=== PATIENT | female | born 1950 | race Caucasian/White ===

== ENCOUNTER 2019-11-27 14:14 | Outpatient (CLI) | payer MEDICARE, OTHER, SELFPAY ==
--- NOTE | 2019-11-27 14:22 | MM_ITS ---
WS: [id number] BILATERAL DIGITAL SCREENING MAMMOGRAM WITH CAD CLINICAL INFORMATION: SCREENING HISTORY: Screening mammogram. No current complaints. COMPARISON: May 22, 2018 TECHNIQUE: Bilateral CC and MLO views. FINDINGS: Fatty-replaced breasts bilaterally. No suspicious focal mass, asymmetry, calcifications, or sap portal architect ural distortion. No evidence of malignancy. MM/[id number] IMPRESSION: BI-RADS: 1-Negative FOLLOW UP: 1 Year Follow-up Recommend return to annual screening mammography.
== END 2019-11-27 14:15 | disposition home or self-care (01) ==
LOC: RADSHAW 14:19
PROVIDERS: Family Provider Family Medicine; PCP Family Medicine; Visit Provider Family Medicine
DX: Z12.31 Encounter for screening mammogram for malignant neoplasm of breast (principal)
CPT/HCPCS: 77067

== ENCOUNTER → 2020-06-15 11:54 | Outpatient (BNVA) | payer MEDICARE, SELFPAY | PROVIDERS: Family Provider Family Medicine; PCP Family Medicine; Visit Provider Family Medicine | DX: I10 Essential (primary) hypertension (principal); E78.5 Hyperlipidemia, unspecified; E03.9 Hypothyroidism, unspecified; Z68.31 Body mass index [BMI] 31.0-31.9, adult; F17.211 Nicotine dependence, cigarettes, in remission | CPT/HCPCS: 80053; 80061; 84443; 85025 ==

== ENCOUNTER 2021-03-17 10:42 | Outpatient (CLI) | payer MEDICARE, SELFPAY ==
--- NOTE | 2021-03-17 10:49 | MM_ITS ---
WS: [id number] Bilateral screening digital mammogram, 03/17/2021 Clinical Data: SCREENING Comparison: 11/27/2019, 05/22/2018, 12/25/2016, 02/23/2015, 08/03/2011, 12/03/2008. Findings: The breast parenchymal pattern shows fat replacement. No spiculated masses or clustered calcification s are seen. There are no secondary signs of carcinoma. MM/[id number] Impression: 1. Negative bilateral mammogram unchanged. 2. Recommend annual screening mammograms. BIRADS: 1-Negative FOLLOW UP: 1 Year Follow-up The CAD seam checker was used.
== END 2021-03-17 10:43 | disposition home or self-care (01) ==
PROVIDERS: Family Provider Family Medicine; PCP Family Medicine; Visit Provider Family Medicine
DX: Z12.31 Encounter for screening mammogram for malignant neoplasm of breast (principal)
CPT/HCPCS: 77067

== ENCOUNTER → 2021-05-16 16:22 | Outpatient (BNVA) | payer MEDICARE, SELFPAY | PROVIDERS: Family Provider Family Medicine; PCP Family Medicine; Visit Provider Nurse Practitioner Family | DX: Z20.822 Contact with and (suspected) exposure to COVID-19 (principal); J06.9 Acute upper respiratory infection, unspecified | CPT/HCPCS: 87635 ==

== ENCOUNTER → 2021-07-11 14:29 | Outpatient (BNVA) | payer MEDICARE, OTHER, SELFPAY | PROVIDERS: Family Provider Family Medicine; PCP Family Medicine; Visit Provider Family Medicine | DX: Z00.00 Encounter for general adult medical examination without abnormal findings (principal); E78.5 Hyperlipidemia, unspecified; I10 Essential (primary) hypertension; E03.9 Hypothyroidism, unspecified; E66.09 Other obesity due to excess calories; Z68.31 Body mass index [BMI] 31.0-31.9, adult | CPT/HCPCS: 80053; 80061; 84443; 85025 ==

== ENCOUNTER 2022-01-21 15:52 | Emergency (ER) | payer MEDICARE, SELFPAY ==
[2022-01-21] VITALS (7 sets, daily range): BP systolic 103–155; BP diastolic 47–96; PULSE 45–142; RESP 14–25; TEMP 36.8; O2SAT 94–100; BMI 30.9
--- NOTE | 2022-01-21 15:57 | XRR_ITS ---
PROCEDURE INFORMATION: Exam: XR Chest Exam date and time: 01/21/2022 4:35 PM Age: 71 years old Clinical indication: Pain; Chest pressure; Additional info: Cp TECHNIQUE: Imaging protocol: XR of the chest. Views: 1 view. COMPARISON: CR Chest 1 [place] [id number] 08/09/2017 12:05 AM FINDINGS: Lungs: Emphysematous changes suspected. Pleural spaces: Unremarkable. No pleural effusion. No pneumothorax. Heart/Mediastinum: Unremarkable. No cardiomegaly. Bones/joints: Unremarkable. XR/XR chest 1V portable [id number] IMPRESSION: 1. Negative for infiltrate. 2. Emphysematous changes suspected.
--- NOTE | 2022-01-21 15:58 | ECG_ITS ---
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 Measurements Intervals [place] Rate: 138 P: TN: QRS: 25 QRSD: 85 T: 248 QT: 263 QTc: 400 Interpretive Statements ATRIAL FIBRILLATION WITH RAPID VENTRICULAR RESPONSE NONSPECIFIC ST & T-WAVE ABNORMALITY Compared to ECG 08/09/2017 02:47:53 Sinus bradycardia no longer present Possible ischemia no longer present T-wave abnormality still present Electronically Signed On 01-22-2022 9:01:01 CDT by Mert Neville M.D. [id number]
--- NOTE | 2022-01-21 16:16 | W.ED.GENADLT ---
HPI - General Adult General: Chief complaint: Shortness of Breath/Dyspnea Stated complaint: Hx of heart issues, Chest Pain, SOB Time Seen by Provider: 01/21/22 16:08 History of Present Illness: Patient is a 71-year-old female with history of paroxysmal atrial fibrillation, CAD status post stent x1 hypertension, hypothyroidism, hyperlipidemia who presents the emergency room with acute palpitation which started at 2:30 PM. Patient tells me that she has intermittent episodes of atrial fibrillation palpitations similar to today. However usually, it goes away after 30 minutes. However patient noticed that she has had persistent palpitation and elevated blood pressure decided come to the emergency room for evaluation. Patient tells me that she takes 25 mg of metoprolol twice daily for her heart. Patient not take any medicine today. Patient denies taking any more of her Synthroid medicine for her hypothyroidism. Patient denies recent stress or excessive caffeine use. Patient denies any active chest pain. Patient had mild shortness of breath after 45 minutes of this palpitation. Patient denies any lightheadedness, focal weakness, abdominal complaints of nausea/vomiting, diaphoresis, diarrhea, or melena/hematochezia. Onset: 1 hr and half agao Duration:ongoing Location:home Severity:moderate Associated symptoms: Reports dyspnea and palpitations; Deny chest pain, nausea, rash or vomiting Review of Systems Const: Denies: fever(s) or chills Eyes: Denies: change in vision ENMT: Denies: mouth pain Card: Reports: palpitations; Denies: chest pain Resp: Reports: dyspnea; Denies: non-productive cough GI: Denies: abdominal pain, nausea, vomiting or diarrhea : Denies: dysuria Musc: Denies: extremity pain Skin/Breast: Denies: rash or new lesions Neuro: Denies: weakness in extremities Psych: Reports: other (Normal mood) Morris/Lymph: Denies: easy bruising PFSH ED PFSH: Medical History Dyslipidemia HTN (hypertension) Hypothyroidism Obesity Family History Father Cancer LUNG Mother Cancer Social History Smoking and tobacco status: former smoker Alcohol intake: current Alcohol intake frequency: holidays/special occasions only Lives independently: Yes Marital status: / Current occupational status: retired Current gender identity: Female Physical Exam Const: COMMON NORMALS: alert HENMT: COMMON NORMALS: atraumatic HEAD & SCALP: atraumatic MOUTH: moist mucous membranes not abnormal Eye: COMMON NORMALS: EOMs intact bilaterally and conjunctivae normal CONJUNCTIVA: Yes conjunctivae normal Neck/C-Spine: COMMON NORMALS: full ROM and supple Resp: COMMON NORMALS: normal respiratory effort and clear to auscultation bilaterally AUSCULTATION: clear to auscultation bilaterally Cardio: RATE: tachycardic OTHER: Irregular irregular tachycardia GI: COMMON NORMALS: Soft to palpation and non-tender PALPATION: Yes Soft to palpation Extremity: COMMON NORMALS: full ROM Neuro: SENSORIUM/ORIENTATION: Yes alert MOTOR EXAM: No Abnormal motor strength present and Other motor observations present (no focal motor deficits) Psych: COMMON NORMALS: speech normal SPEECH: Yes normal speech MOOD & AFFECT: Yes euthymic mood Course Vital Signs: Vital signs: Vital Signs Temperature 98.2 F 01/21/22 15:56 Pulse Rate 47 L 01/21/22 18:53 Respiratory Rate 14 01/21/22 18:53 Blood Pressure 116/53 01/21/22 18:53 Pulse Oximetry 95 01/21/22 18:53 [facility] - General Adult Medical Decision Making 71-year-old female with history of CAD, paroxysmal atrial fibrillation, hypothyroidism on Synthroid, hypertension, hyperlipidemia presented to emergency room with new onset of palpitations since 230 today. On arrival, patient is noted to have irregular tachycardia. Patient noted to be in atrial fibrillation with RVR to the 138s. Rest of physical exam within normal limit. Patient recevied IVF, 1mg of Ativan, 10 mg of IV metoprolol, 50 mg of p.o. metoprolol, and 10mg of IV cardizem with significant improvement heart rate. Delta troponin < 5. EKG is nonischemic. D-dimer within normal limit. TSH/T4 within normal. Do not suspect ACS or PE at this time. Free T4 appeared to be mildly elevated. Discussed this finding with patient and instructed her to follow-up with her primary care doctor to adjust her synthroid. K of 3.0, patient received 40 mEq of p.o. potassium. I have given patient follow up with our social work case manager to be seen by our outpatient Cardiology for further evaluation of atrial fibrilation. Patient aware of a call from our social work case manager to schedule for appointment(s) and verbalizes understanding of the importance of following up. Patient has metoprolol at home and have instructed patient to take 50 mg when she has another episode of palpitation in the future. Disposition: Discharge. Patient counseled regarding diagnostic impression, treatment plan. Patient given ED strict return precautions to return for continuation, worsening, or development of new symptoms. Instructed to f/u w/ PCP regarding symptoms today. Patient verbalized understanding. Lab Data : 01/21/22 16:21 01/21/22 16:21 Radiology Impressions Chest X-Ray 01/21/22 15:57 IMPRESSION: 1. Negative for infiltrate. 2. Emphysematous changes suspected. Laboratory Results WBC 8.6 10^3/uL (4.0-10.0) 01/21/22 16: RBC 5.01 10^6/uL (4.1-5.3) 01/21/22 16: Hgb 13.7 g/dL (11.5-15.3) 01/21/22 16:21 Hct 43.5 % (37.0-47.0) 01/21/22 16:21 MCV 86.8 fl (81-99) 01/21/22 16: MCH 27.3 pg (28.0-34.0) L 01/21/22 16:21 MCHC 31.5 g/dL (30.0-36.0) 01/21/22 16:21 RDW 13.2 % (12.1-15.1) 01/21/22 16:21 Plt Count 235 10^3/cmm (130-400) 01/21/22 16:21 MPV 12.8 fL (7.4-10.4) H 01/21/22 16: Neut % (Auto) 47.4 % 01/21/22 16: Lymph % (Auto) 35.9 % 01/21/22 16:21 [place] % (Auto) 10.0 % 01/21/22 16: Eos % (Auto) 5.8 % 01/21/22 16: Baso % (Auto) 0.7 % 01/21/22 16: Neut # (Auto) 4.07 10^3/uL (1.8-7.7) 01/21/22 16:21 Lymph # (Auto) 3.1 10^3/uL (0.8-4.8) 01/21/22 16:21 [place] # (Auto) 0.9 10^3/uL (0.2-0.9) 01/21/22 16:21 Eos # (Auto) 0.5 10^3/uL (0.0-0.8) 01/21/22 16:21 Baso # (Auto) 0.1 10^3/uL (0.0-0.1) 01/21/22 16:21 Nucleated RBC % (auto) 0 % 01/21/22 16:21 Nucleated RBCs # 0.0 /100WBC 01/21/22 16:21 PT 13.00 SECONDS (12.1-14.9) 01/21/22 16:21 INR 0.95 (0.8-1.2) 01/21/22 16:21 D-Dimer 0.33 ug/mIFEU (0-0.59) 01/21/22 16:21 Sodium 138 mmol/L (136-145) 01/21/22 16:21 Potassium 3.0 mmol/L (3.5-5.1) L 01/21/22 16:21 Chloride 99 mmol/L (98-107) 01/21/22 16:21 Carbon Dioxide 20 mmol/L (22-29) L 01/21/22 16:21 Anion Gap 22.0 (5-19) H 01/21/22 16:21 BUN 18 mg/dL (8-23) 01/21/22 16:21 Creatinine 1.0 mg/dL (0.5-0.9) H 01/21/22 16:21 GFR Calculation 54.8 mL/min (90-130) L 01/21/22 16:21 Glucose 135 mg/dL (65-115) H 01/21/22 16:21 Calculated Osmolality 290 mOsm/kg (285-295) 01/21/22 16:21 Calcium 10.3 mg/dL (8.5-10.5) 01/21/22 16:21 Total Bilirubin 0.7 mg/dL (0.15-1.2) 01/21/22 16:21 AST 22 U/L (0-32) 01/21/22 16:21 ALT 19 U/L (0-33) 01/21/22 16:21 Alkaline Phosphatase 91 IU/L (35-105) 01/21/22 16:21 Troponin T Baseline 8 ng/L (0-10) 01/21/22 16:21 Troponin T 120 Minute 12.36 ng/L (0-10) H 01/21/22 18:30 Delta Troponin T 4.36 ABS# (0-10) 01/21/22 18:30 NT-Pro-B Natriuret Pep 155 pg/mL (0-125) H 01/21/22 16:21 Total Protein 7.4 g/dL (6.6-8.7) 01/21/22 16:21 Albumin 4.9 g/dL (3.5-5.2) 01/21/22 16:21 Globulin 2.5 g/dL (1.3-4.6) 01/21/22 16:21 TSH 1.78 uIU/mL (0.27-4.20) 01/21/22 16:21 Free T4 1.87 ng/dL (0.82-1.77) H 01/21/22 16:21 Imaging Data Other Imaging: Radiologist's impression: [address] [address] XRay Report Signed Patient: Miryam Medina Unit #: [id number] : 1950 Age/Sex: 71 / F ADM Date: 01/21/22 Loc: ER Room/Bed: Attending Dr: Ordering Provider/Ordering MD: Mary Guevara MD Date of Service: 01/21/22 Procedure(s): XR chest 1V portable [id number] Accession Number(s): [id number] Report Number: [id number] PROCEDURE INFORMATION: Exam: XR Chest Exam date and time: 01/21/2022 4:35 PM Age: 71 years old Clinical indication: Pain; Chest pressure; Additional info: Cp TECHNIQUE: Imaging protocol: XR of the chest. Views: 1 view. COMPARISON: CR Chest 1 [place] [id number] 08/09/2017 12:05 AM FINDINGS: Lungs: Emphysematous changes suspected. Pleural spaces: Unremarkable. No pleural effusion. No pneumothorax. Heart/Mediastinum: Unremarkable. No cardiomegaly. Bones/joints: Unremarkable. XR/XR chest 1V portable [id number] IMPRESSION: 1. Negative for infiltrate. 2. Emphysematous changes suspected. ? Dictated By: Noe Solo MD Signed By: Noe Solo MD Signed Date/Time: 01/21/22 1732 DD/ 1635 Discharge Plan Discharge Patient Disposition: Home Clinical Impression: Atrial fibrillation, Dyspnea, Palpitations, Hypokalemia Condition: Stable Prescriptions: No Action Move Free Joint Health 750 mg-100 mg- 1.65 mg-108 mg tablet PO DAILY 0RF aspirin [Adult Low Dose Aspirin] 81 mg tablet,delayed release (DR/EC) 81 mg PO QDAY 0RF ascorbic acid (vitamin C) 250 mg tablet 250 mg PO DAILY 0RF cholecalciferol (vitamin D3) 25 mcg (1,000 unit) capsule 25 mcg PO DAILY 0RF potassium chloride 20 mEq tablet,ER particles/crystals 20 meq PO QDAY Qty: 90 3RF nitroglycerin [Nitrostat] 0.4 mg tablet, sublingual 0.4 mg SUBLINGUAL Q5M PRN (Reason: chest pain) Qty: 30 6RF diphenhydramine HCl [Sleep-Tabs] 25 mg tablet 25 mg PO ONCE PRN0RF nitrofurantoin macrocrystal [Macrodantin] 100 mg capsule 100 mg PO BID Qty: 30 1RF Rx Instructions: must administer with a meal/food rosuvastatin 10 mg tablet See Rx Instructions .ROUTE .COMPLEX Qty: 90 3RF Dose Instruction: TAKE 1 TABLET BY MOUTH EVERY DAY Rx Instructions: TAKE 1 TABLET BY MOUTH EVERY DAY hydrochlorothiazide 25 mg tablet 25 mg PO QAM Qty: 90 2RF epinephrine 0.3 mg/0.3 mL auto-injector 0.3 mg IM ONCE PRN (Reason: hypersensitivity reaction) Qty: 1 0RF metoprolol tartrate 25 mg tablet 25 mg PO BID Qty: 180 3RF cholestyramine (with sugar) 4 gram powder in packet 4 g PO DAILY Qty: 20 0RF Rx Instructions: administer w/meal; avoid other meds within 1hr before or 4-6hr after dose levothyroxine [Synthroid] 100 mcg tablet See Rx Instructions .ROUTE .COMPLEX Qty: 90 3RF Dose Instruction: TAKE 1 TABLET BY MOUTH EVERY DAY Rx Instructions: TAKE 1 TABLET BY MOUTH EVERY DAY Discharge Orders: Discharge ED (Routine); Ordered 01/21/22 Ordered By: Ezra Connell Referrals: Joanna Pike MD [Primary Care Provider] - Discharge Diet: Advance as tolerated Discharge Activity: Increase activity as tolerated Patient Instructions: A-fib (Atrial Fibrillation) (ED) Activity Restrictions/Additional Instructions: Come back to the emergency room if you have chest pain, further palpitations, any fever or chills, worsening shortness of breath, worsening exertional lightheadedness, or any new or concerning complaints. Our social work case manager will have you follow-up with Cardiology in the next few days. You would be expected to have a phone call with our social work case manager who will put you on the schedule. You can expect a call from us in the next 2-3 days. If you don't hear from us, call us back in the emergency room at [phone]. Coding Level of Care Code ED Dope Pourer for Jenna Fwd Exam Comprehensive
[2022-01-21] MEDS: metoprolol tartrate 50 mg Tablet PO (16:20)
[2022-01-21] MEDS: LORazepam 2 mg/mL INJ 1 mL 1 MG IVP (16:20)
[2022-01-21] MEDS: sodium chloride 0.9% 500 ML IV (16:20)
--- NOTE | 2022-01-21 16:30 | PC.NURSE ---
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 Patient here today for chest pressure over the last two hours that continues to worsen and is not going away. Patient states this has happened before but resolved quickly and on his own. Patient in bed, alert and oriented, call light within reach, denies any needs, and family at bedside.
[2022-01-21] MEDS: metoprolol tartrate 1 mg/1 mL SDV 5 mL 5 MG IVP ×2 (16:39→17:24)
[2022-01-21 16:40] LABS: Basophils # 0.1 10^3/uL (0.0-0.1); Basophils % 0.7 %; Eosinophils # 0.5 10^3/uL (0.0-0.8); Eosinophils % 5.8 %; Hematocrit 43.5 % (37.0-47.0); Hemoglobin 13.7 g/dL (11.5-15.3); Lymphocytes # 3.1 10^3/uL (0.8-4.8); Lymphocytes % 35.9 %; Mean Corpuscular HGB Conc 31.5 g/dL (30.0-36.0); Mean Corpuscular Hemoglobin 27.3 pg (28.0-34.0); Mean Corpuscular Volume 86.8 fl (81-99); Mean Platelet Volume 12.8 fL (7.4-10.4); Monocytes # 0.9 10^3/uL (0.2-0.9); Neutrophils # 4.07 10^3/uL (1.8-7.7); Neutrophils % 47.4 %; Nucleated Red Blood Cells % 0 %; Platelet Count 235 10^3/cmm (130-400); Red Blood Count 5.01 10^6/uL (4.1-5.3); Red Cell Distribution Width 13.2 % (12.1-15.1); White Blood Count 8.6 10^3/uL (4.0-10.0)
--- NOTE | 2022-01-21 16:40 | PC.NURSE ---
Patient pressure 136/47, notified Dr. Connell, he states to give IV metoprolol slowly and to notify him if it lowers and he will order more fluids. Blood pressure after IVP 128/60, 132 pulse, 96 %, 128/60.
[2022-01-21 16:48] LABS: INR 0.95 (0.8-1.2)
[2022-01-21 16:50] LABS: D Dimer 0.33 ug/mIFEU (0-0.59)
[2022-01-21 16:58] LABS: Troponin(5th) Baseline 8 ng/L (0-10)
[2022-01-21 17:08] LABS: Alanine Aminotransferase 19 U/L (0-33); Albumin Level 4.9 g/dL (3.5-5.2); Alkaline Phosphatase 91 IU/L (35-105); Aspartate Amino Transferase 22 U/L (0-32); Blood Urea Nitrogen 18 mg/dL (8-23); Calcium 10.3 mg/dL (8.5-10.5); Carbon Dioxide 20 mmol/L (22-29); Chloride 99 mmol/L (98-107); Free T4 Free Thyroxine 1.87 ng/dL (0.82-1.77); Globulin 2.5 g/dL (1.3-4.6); Glomerular Filtration Rate 54.8 mL/min (90-130); Glucose 135 mg/dL (65-115); NT Pro B Type Natriuretic Pept 155 pg/mL (0-125); Osmolality Calculated 290 mOsm/kg (285-295); Sodium 138 mmol/L (136-145); Thyroid Stimulating Hormone 1.78 uIU/mL (0.27-4.20); Total Bilirubin 0.7 mg/dL (0.15-1.2); Total Protein 7.4 g/dL (6.6-8.7)
--- NOTE | 2022-01-21 17:48 | PC.NURSE ---
Patient in bed, provider at bedside,family at bedside.
--- NOTE | 2022-01-21 17:48 | PC.NURSE ---
Patient ambulating to bathroom with family.
--- NOTE | 2022-01-21 17:58 | ECG_ITS ---
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 Measurements Intervals [place] Rate: 45 P: 75 IA: 148 QRS: 52 QRSD: 88 T: 41 QT: 460 QTc: 402 Interpretive Statements SINUS BRADYCARDIA NONSPECIFIC ST & T-WAVE ABNORMALITY Compared to ECG 01/21/2022 16:04:04 Atrial fibrillation no longer present T-wave abnormality still present Electronically Signed On 01-22-2022 9:04:38 CDT by Mert Neville M.D. [id number]
[2022-01-21] MEDS: potassium chloride ER 20 mEq Tablet 40 MEQ PO (18:26)
--- NOTE | 2022-01-21 18:26 | PC.ADMIT ---
[address] [address] Admission Note: The patient,Miryam Medina,71 y/o, was given written information regarding hospital policies, unit procedures and contact persons. Patient's smoking status: former smoker. Vital Signs - 8 hr 01/21/22 15:56 01/21/22 16:32 01/21/22 17:39 Temperature 98.2 F Pulse Rate 142 H 130 H 76 Respiratory Rate 24 H 22 H 21 H Blood Pressure 155/96 136/47 103/67 Pulse Oximetry 98 95 95 01/21/22 17:45 Temperature Pulse Rate 76 Respiratory Rate 25 H Blood Pressure 113/79 Pulse Oximetry 94 [id number]
--- NOTE | 2022-01-21 18:54 | PC.NURSE ---
Patient heart rate below 50, Dr. Connell aware, instructed by Dr. Connell to monitor patient and watch her heart rate.
[2022-01-21 19:01] LABS: Troponin 5 2HR 12.36 ng/L (0-10)
[2022-01-21 19:02] LABS: Troponin 5 2HR Delta 4.36 ABS# (0-10)
--- NOTE | 2022-01-21 19:05 | PC.NURSE ---
Patient report given to Mirtha ESTRADA.
--- NOTE | 2022-01-21 21:24 | PC.NURSE ---
per provider direction pt is cleared to be discharged home discharge instructions printed and given to pt. pt pulse at time of dc 50
--- NOTE | 2022-01-23 11:29 | DCPLANNER ---
sales strategy manager had message to speak with patient about getting established with a primary care physician. Patient has a primary care physician, patient sees Dr. Pike. sales strategy manager did call Dr. Valdovinos nurse to let the physician know that his patient was seen in the ER. Patient did have an appointment scheduled for 01.22.[address] Pike and patient did attend the appointment.
== END 2022-01-21 21:29 | disposition home or self-care (01) ==
PROVIDERS: Emergency Medicine; Emergency Provider Emergency Medicine; PCP Family Medicine
DX: I48.91 Unspecified atrial fibrillation (principal); R06.00 Dyspnea, unspecified; E87.6 Hypokalemia; Z79.82 Long term (current) use of aspirin; E78.5 Hyperlipidemia, unspecified; I10 Essential (primary) hypertension; Z87.891 Personal history of nicotine dependence
CPT/HCPCS: 71045; 80053; 83880; 84439; 84443; 84484; 85025; 85378; 85610; 93005; 96361; 96374; 96375; 96376; 99284; J2060; J3490; J7040

== ENCOUNTER 2022-02-07 06:43 | Outpatient (CLI) | payer MEDICARE, SELFPAY ==
--- NOTE | 2022-02-07 07:15 | USCV_ITS ---
Miryam Medina Age: 71 Gender: F : 1950 Exam Date: 02/07/2022 07:05 Ordering Phys: Joanna Pike MD Technologist: Sophia Clark Exam Location: [facility] [place] Indication: Atrial fibrillation BP: 134 / 84 HR: 64 Rhythm: Sinus Technical Quality: Adequate MEASUREMENTS (Male / Female) Normal Values 2D ECHO LV Diastolic Diameter PLAX 4.0 cm 4.2 - 5.9 / 3.9 - 5.3 cm LV Systolic Diameter PLAX 2.7 cm IVS Diastolic Thickness 1.0 cm 0.6 - 1.0 / 0.6 - 0.9 cm IVS Systolic Thickness 1.7 cm LVPW Diastolic Thickness 1.1 cm 0.6 - 1.0 / 0.6 - 0.9 cm LVPW Systolic Thickness 1.5 cm LVOT Diameter 2.0 cm LV Ejection Fraction 2D Teich 61.7 % LV Ejection Fraction MOD 2C 73.5 % LV Ejection Fraction 2C AL 74.5 % LA Diameter 2.0 cm LA Width 3.6 cm LA Height 4.3 cm RA Width 3.4 cm RA Height 4.2 cm Aorta at Sinotubular Diameter 2.2 cm M-MODE Aortic Annulus Diameter 2.8 cm LA Ao Ratio MM 0.6 MV E Point Septal Separation 0.6 cm DOPPLER AV Peak Velocity 187.3 cm/s LVOT Peak Velocity 160.0 cm/s AV Area Cont Eq vti 2.5 cm squared AV Area Cont Eq pk 2.7 cm squared MV Peak Velocity 88.0 cm/s MV Area PHT 2.5 cm squared Mitral E to A Ratio 0.9 MV E' Velocity 85.0 cm/s TR Peak Velocity 265.5 cm/s TR Peak Gradient 28.2 mmHg TR Mean Velocity 218.3 cm/s TR Mean Gradient 19.7 mmHg TR Velocity Time Integral 69.1 cm TV Peak E Velocity 44.0 cm/s Right Atrial Pressure 3.0 mmHg Pulmonary Artery Systolic Pressu 31.2 mmHg PV Peak Velocity 116.0 cm/s RV Acceleration Time 0.1 s RV Ejection Time 0.3 s RV AcT/ET 0.2 FINDINGS Left Ventricle Normal left ventricular size, systolic function and wall thickness, with no regional wall motion abnormalities. Left ventricular ejection fraction is estimated at 70 %. Normal diastolic filling pattern. Right Ventricle Normal right ventricular size and systolic function. Right ventricular systolic pressure 31.2 mmHg. Right Atrium Normal right atrial size. Right atrial pressure estimated at 3 mm Hg. Left Atrium Normal left atrial size. Mitral Valve Structurally normal mitral valve. No mitral valve stenosis. Mild mitral valve regurgitation. Aortic Valve Aortic valve not well visualized. Probably trileaflet aortic valve. No aortic valve stenosis. No aortic valve regurgitation. Tricuspid Valve Structurally normal tricuspid valve. No tricuspid valve stenosis. Trace tricuspid valve regurgitation. Pulmonic Valve Pulmonic valve not well visualized. Pericardium No pericardial effusion. Aorta Normal size aortic root and proximal ascending aorta. Normal- sized inferior vena cava. CONCLUSIONS 1. Normal left ventricular size, systolic function and wall thickness, with no regional wall motion abnormalities. Left ventricular ejection fraction is estimated at 70 %. Normal diastolic filling pattern. 2. Normal right ventricular size and systolic function. 3. Mild mitral valve regurgitation. 4. Pulmonary artery pressure estimated at 31 mmHg. 5. No prior similar studies to compare. Lucila Gunter MD (Electronically Signed) Final Date: 10 February 2022 14:01 S
== END 2022-02-07 06:44 | disposition home or self-care (01) ==
LOC: RAD 06:45
PROVIDERS: PCP Family Medicine; Visit Provider Family Medicine
DX: I48.91 Unspecified atrial fibrillation (principal); I34.0 Nonrheumatic mitral (valve) insufficiency
CPT/HCPCS: 93306

== ENCOUNTER 2022-02-12 00:08 | Emergency (ER) | payer MEDICARE, SELFPAY ==
[2022-02-12] VITALS (7 sets, daily range): BP systolic 107–130; BP diastolic 69–84; PULSE 63–78; RESP 16–22; TEMP 36.6; O2SAT 91–95; BMI 30.2
--- NOTE | 2022-02-12 00:10 | XRR_ITS ---
PROCEDURE INFORMATION: Exam: XR Chest Exam date and time: 02/12/2022 12:53 AM Age: 71 years old Clinical indication: Other: Hypertension/a. Fib TECHNIQUE: Imaging protocol: XR of the chest. Views: 1 view. COMPARISON: CR (CHEST, ) 01/21/2022 4:35 PM FINDINGS: Tubes, catheters and devices: EKG monitoring leads overlie the thoracic wall. Lungs: There is no evidence of focal pulmonary consolidation. Linear atelectasis or scarring at the left lung base. Mild pulmonary hyperinflation. Pleural spaces: No pleural effusion or pneumothorax. Heart/Mediastinum: Normal in size. Bones/joints: No acute fracture is identified. XR/XR chest 1V portable [id number] IMPRESSION: 1. Mild pulmonary hyperinflation as seen in COPD. 2. No consolidation.
--- NOTE | 2022-02-12 00:11 | ECG_ITS ---
[facility] Test Date: 2022-02-12 Pat Name: Mriyam Medina Department: Room: Gender: Female Instrument Sterilizer: : 1950 Requested By: Cresencio Kapadia Order Number: [id number] Aniceto MD: Lucila Gunter M.D. Measurements Intervals [place] Rate: 73 P: 18 IA: 143 QRS: 14 QRSD: 94 T: -18 QT: 393 QTc: 434 Interpretive Statements SINUS RHYTHM MINIMAL VOLTAGE CRITERIA FOR LVH, CONSIDER NORMAL VARIANT [MEETS CRITERIA IN ONE OF: R(aVL), S(V1), R(V5), R(V5/V6)+S(V1)] NONSPECIFIC ST & T-WAVE ABNORMALITY Compared to ECG 01/21/2022 18:48:33 Sinus bradycardia no longer present T-wave abnormality still present Electronically Signed On 02-13-2022 7:29:04 CDT by Lucila Gunter M.D. [id number]
--- NOTE | 2022-02-12 00:25 | W.ED.DIZZY ---
HPI - Dizziness General: Chief Complaint: Dizziness Stated Complaint: high B/P Time Seen by Provider: 02/12/22 00:10 History of Present Illness: HPI Narrative: Patient is a 71-year-old female who comes to the ED after having an episode of palpitations. Episode started around 7 PM tonight. She was feeling heart palpitations, nausea, shortness of breath and feeling lightheaded. Endorsed feeling some chest discomfort during episode as well She then took her nightly dose of metoprolol 25 mg at 7 PM on her heart palpitations started. Symptoms resolved. She then got up to go to the bathroom couple hours later and had another episode of palpitations. She took an extra dose of metoprolol 25mg at 1050. She decided to come here to the ED for further evaluation. By the time she arrived here in the ED her symptoms had resolved and patient says she is currently feeling normal. Denies any current palpitations, chest pain, shortness of breath, nausea or lightheadedness. She was seen here in the ED for similar complaint back on January 21. She has an appointment with her PCP to get a heart monitor tomorrow. she had an echocardiogram last Saturday but has not gotten the results back yet. Primary care physician Dr. Pike is currently in the process of setting her up with an appointment to see cardiology. Associated symptoms: Reports chest pain (Resolved upon arrival to ED) and palpitations (Resolved upon arrival to ED); Denies chills, headache(s), nausea, nasal congestion or vomiting Associated neuro symptoms: Deny numbness in extremities Review of Systems Const: Denies: fever(s), chills or fatigue Eyes: Denies: change in vision or eye discomfort ENMT: Denies: throat pain, odynophagia, nasal discharge or nasal congestion Card: Reports: chest pain (Resolved upon arrival to ED), palpitations (Resolved upon arrival to ED) and lightheadedness (Resolved upon arrival to ED); Denies: edema, swelling of feet/ankles, dyspnea on exertion or orthopnea Resp: Reports: dyspnea (Resolved upon arrival to ED); Denies: productive cough or non-productive cough GI: Denies: abdominal pain, nausea, vomiting, diarrhea, constipation or hematochezia : Denies: flank pain, dysuria or hematuria Musc: Denies: neck pain, back pain or extremity swelling Skin/Breast: Denies: rash or new lesions Neuro: Denies: headache(s), numbness in extremities or weakness in extremities PFSH ED PFSH: Medical History Anemia Dyslipidemia HTN (hypertension) Hypothyroidism Obesity Family History Father Cancer LUNG Mother Cancer Social History Smoking and tobacco status: former smoker Alcohol intake: current Alcohol intake frequency: holidays/special occasions only Lives independently: Yes Marital status: / Current occupational status: retired Current gender identity: Female Physical Exam Const: COMMON NORMALS: no acute distress, patient oriented x3 and alert GENERAL APPEARANCE: cooperative and comfortable HENMT: COMMON NORMALS: normocephalic HEAD & SCALP: normocephalic MOUTH: Normal oral and palatal mucosa present THROAT: posterior oropharynx normal and uvula midline Eye: COMMON NORMALS: Equal, round and reactive pupils present and conjunctivae normal CONJUNCTIVA: Yes conjunctivae normal PUPIL: Yes Equal, round and reactive pupils present Neck/C-Spine: COMMON NORMALS: supple GENERAL: Yes normal visual inspection Resp: COMMON NORMALS: normal respiratory effort, No retractions, No use of accessory muscles and clear to auscultation bilaterally AUSCULTATION: clear to auscultation bilaterally Cardio: COMMON NORMALS: regular rate, regular rhythm, S1 normal heart sound present, S2 normal heart sound present, No gallops present (Cardio), No clicks present (Cardio), No murmurs present (Cardio) and Peripheral pulses 2+ throughout RATE: regular rate RHYTHM: regular rhythm HEART SOUNDS: S1 normal heart sound present and S2 normal heart sound present PERIPHERAL PULSES: Peripheral pulses 2+ throughout GI: COMMON NORMALS: Normal to inspection, nondistended, normoactive bowel sounds present, Soft to palpation, non-tender and no masses PALPATION: Yes Soft to palpation : COMMON NORMALS: Yes no CVA tenderness BLADDER/KIDNEY EXAM: Yes no CVA tenderness Back/Pelvis: COMMON NORMALS: no CVA tenderness Extremity: COMMON NORMALS: normal to inspection and no pedal edema Neuro: COMMON NORMALS: patient oriented x3 and moves all extremities SENSORIUM/ORIENTATION: Yes alert SENSORY EXAM: Yes extremities (intact) Skin: GENERAL SKIN EXAM: dry skin Course Reevaluation(s): Reevaluation #1: Patient is still not had any episodes of palpitations or any symptoms while here in the ED she says she feels completely normal. Time: 03:05 Vital Signs: Vital signs: Vital Signs Temperature 97.8 F 02/12/22 00:13 Pulse Rate 67 02/12/22 02:53 Respiratory Rate 22 H 02/12/22 02:53 Blood Pressure 117/75 02/12/22 02:53 Pulse Oximetry 93 02/12/22 02:53 MDM - Dizziness Medical Decision Making Patient is a 71-year-old female who comes to the ED after having an episode of palpitations at home. She had a similar episode back on January 21 and was seen here in the ED and evaluated. Since then she is seen her PCP and has had an echocardiogram done and is getting a heart monitor tomorrow. Symptoms started tonight and resolved by the time patient arrived here to the ED. Here in the ED, she has no symptoms and feels normal. Denies any palpitations, chest pain shortness of breath. Vitals are stable. Exam is benign. EKG showed normal sinus rhythm with no ST segment elevation or depression seen. Chest x-ray showed no acute findings. CBC and CMP were unremarkable. Troponins negative. Patient's primary care physician is currently trying to get patient set up with cardiology so I placed an order with case management for patient be referred to hogshead stripper for follow-up. Patient has not had any symptoms or palpitations while here in the ED and she continues to feel normal. Patient diagnosed with heart palpitations and discharged home. She is set up to get a cardiac specialist tomorrow. I told her to follow-up with her PCP within the next week for reevaluation. Return to ED precautions given. Patient understood and agreed with plan. Lab Data I reviewed the patient's lab results. : 02/12/22 01:10 02/12/22 01:10 Radiology Impressions Chest X-Ray 02/12/22 00:10 IMPRESSION: 1. Mild pulmonary hyperinflation as seen in COPD. 2. No consolidation. Laboratory Results WBC 9.2 10^3/uL (4.0-10.0) 02/12/22 01:10 RBC 4.99 10^6/uL (4.1-5.3) 02/12/22 01:10 Hgb 13.6 g/dL (11.5-15.3) 02/12/22 01:10 Hct 42.6 % (37.0-47.0) 02/12/22 01:10 MCV 85.4 fl (81-99) 02/12/22 01:10 MCH 27.3 pg (28.0-34.0) L 02/12/22 01:10 MCHC 31.9 g/dL (30.0-36.0) 02/12/22 01:10 RDW 12.9 % (12.1-15.1) 02/12/22 01:10 Plt Count 250 10^3/cmm (130-400) 02/12/22 01:10 MPV 12.8 fL (7.4-10.4) H 02/12/22 01:10 Neut % (Auto) 55.8 % 02/12/22 01:10 Lymph % (Auto) 29.3 % 02/12/22 01:10 [place] % (Auto) 10.1 % 02/12/22 01:10 Eos % (Auto) 4.2 % 02/12/22 01:10 Baso % (Auto) 0.5 % 02/12/22 01:10 Neut # (Auto) 5.15 10^3/uL (1.8-7.7) 02/12/22 01:10 Lymph # (Auto) 2.7 10^3/uL (0.8-4.8) 02/12/22 01:10 [place] # (Auto) 0.9 10^3/uL (0.2-0.9) 02/12/22 01:10 Eos # (Auto) 0.4 10^3/uL (0.0-0.8) 02/12/22 01:10 Baso # (Auto) 0.1 10^3/uL (0.0-0.1) 02/12/22 01:10 Nucleated RBC % (auto) 0 % 02/12/22 01:10 Nucleated RBCs # 0.0 /100WBC 02/12/22 01:10 Sodium 140 mmol/L (136-145) 02/12/22 01:10 Potassium 3.4 mmol/L (3.5-5.1) L 02/12/22 01:10 Chloride 103 mmol/L (98-107) 02/12/22 01:10 Carbon Dioxide 22 mmol/L (22-29) 02/12/22 01:10 Anion Gap 18.4 (5-19) 02/12/22 01:10 BUN 19 mg/dL (8-23) 02/12/22 01:10 Creatinine 0.6 mg/dL (0.5-0.9) 02/12/22 01:10 GFR Calculation 98.8 mL/min (90-130) 02/12/22 01:10 Glucose 133 mg/dL (65-115) H 02/12/22 01:10 Calculated Osmolality 294 mOsm/kg (285-295) 02/12/22 01:10 Calcium 9.7 mg/dL (8.5-10.5) 02/12/22 01:10 Total Bilirubin 0.5 mg/dL (0.15-1.2) 02/12/22 01:10 AST 21 U/L (0-32) 02/12/22 01:10 ALT 17 U/L (0-33) 02/12/22 01:10 Alkaline Phosphatase 83 IU/L (35-105) 02/12/22 01:10 Troponin T Baseline 11 ng/L (0-10) H 02/12/22 01:10 Troponin T 120 Minute 11.57 ng/L (0-10) H 02/12/22 02:43 Delta Troponin T 0.57 ABS# (0-10) 02/12/22 02:43 NT-Pro-B Natriuret Pep 517 pg/mL (0-125) H 02/12/22 01:10 Total Protein 7.3 g/dL (6.6-8.7) 02/12/22 01:10 Albumin 4.5 g/dL (3.5-5.2) 02/12/22 01:10 Globulin 2.8 g/dL (1.3-4.6) 02/12/22 01:10 Lipase 15 U/L (13-60) 02/12/22 01:10 Urine Color Yellow (Yellow) 02/12/22 01:00 Urine Appearance Clear (CLEAR) 02/12/22 01:00 Urine pH 8 (5-7) H 02/12/22 01:00 Ur Specific [place] 1.010 (1.005-1.030) 02/12/22 01:00 Urine Protein Neg (Negative) 02/12/22 01:00 Urine Glucose (UA) Norm (Normal) 02/12/22 01:00 Urine Ketones 1+ (Negative) H 02/12/22 01:00 Urine Blood Neg (Negative) 02/12/22 01:00 Urine Nitrate Negative (Negative) 02/12/22 01:00 Urine Bilirubin Neg (Negative) 02/12/22 01:00 Prot Sulfosalicylic Acd Negative (Negative) 02/12/22 01:00 Urine Urobilinogen Norm mg/dL (Negative) 02/12/22 01:00 Ur Leukocyte Esterase Negative (Negative) 02/12/22 01:00 EKG Data EKG 1: EKG interpretation date: 02/12/22 EKG interpretation time: 01:05 Interpretation: Normal sinus rhythm, no ST segment elevation or depression seen. 73 bpm. Discharge Plan Discharge Patient Disposition: Home Clinical Impression: Heart palpitations Condition: Stable Prescriptions: No Action Move Free Ambrx Health 750 mg-100 mg- 1.65 mg-108 mg tablet PO DAILY 0RF aspirin [Adult Low Dose Aspirin] 81 mg tablet,delayed release (DR/EC) 81 mg PO QDAY 0RF ascorbic acid (vitamin C) 250 mg tablet 250 mg PO DAILY 0RF cholecalciferol (vitamin D3) 25 mcg (1,000 unit) capsule 25 mcg PO DAILY 0RF potassium chloride 20 mEq tablet,ER particles/crystals 20 meq PO QDAY Qty: 90 3RF nitroglycerin [Nitrostat] 0.4 mg tablet, sublingual 0.4 mg SUBLINGUAL Q5M PRN (Reason: chest pain) Qty: 30 6RF diphenhydramine HCl [Sleep-Tabs] 25 mg tablet 25 mg PO ONCE PRN0RF nitrofurantoin macrocrystal [Macrodantin] 100 mg capsule 100 mg PO BID Qty: 30 1RF Rx Instructions: must administer with a meal/food rosuvastatin 10 mg tablet See Rx Instructions .ROUTE .COMPLEX Qty: 90 3RF Dose Instruction: TAKE 1 TABLET BY MOUTH EVERY DAY Rx Instructions: TAKE 1 TABLET BY MOUTH EVERY DAY hydrochlorothiazide 25 mg tablet 25 mg PO QAM Qty: 90 2RF epinephrine 0.3 mg/0.3 mL auto-injector 0.3 mg IM ONCE PRN (Reason: hypersensitivity reaction) Qty: 1 0RF metoprolol tartrate 25 mg tablet 25 mg PO BID Qty: 180 3RF cholestyramine (with sugar) 4 gram powder in packet 4 g PO DAILY Qty: 20 0RF Rx Instructions: administer w/meal; avoid other meds within 1hr before or 4-6hr after dose levothyroxine [Synthroid] 100 mcg tablet See Rx Instructions .ROUTE .COMPLEX Qty: 90 3RF Dose Instruction: TAKE 1 TABLET BY MOUTH EVERY DAY Rx Instructions: TAKE 1 TABLET BY MOUTH EVERY DAY Discharge Orders: Discharge ED (Routine); Ordered 02/12/22 Ordered By: Cresencio Kapadia Referrals: Joanna Pike MD [Primary Care Provider] - Discharge Diet: Regular Discharge Activity: Increase activity as tolerated Patient Instructions: Heart Palpitations (DC) Activity Restrictions/Additional Instructions: Follow-up with medical provider as directed within the next week for reevaluation. Case management should be contacting you in the next several days set up an appointment with hogshead stripper. Continue taking all home medications as previously prescribed. Return to the ER or your medical provider if condition worsens. Please read and understand discharge instructions. Thank you for choosing [facility] for your healthcare needs today. Please realize this is an emergency room and that we are providing you with a medical screening exam and this may not be complete and all inclusive of all the testing and or work up that you may need to determine your ailment or severity of your illness. It is very important that you follow up as instructed or that you return to the Emergency Department should you have concerns or if your condition changes or worsens in any way. Coding Level of Care Code ED Land Surveyor for Jenna Wilson Exam Comprehensive
[2022-02-12 01:25] LABS: Add Urine Microscopic? NO; Charge for UA Resulting for Rev
[2022-02-12 01:29] LABS: Basophils # 0.1 10^3/uL (0.0-0.1); Basophils % 0.5 %; Eosinophils # 0.4 10^3/uL (0.0-0.8); Eosinophils % 4.2 %; Hematocrit 42.6 % (37.0-47.0); Hemoglobin 13.6 g/dL (11.5-15.3); Lymphocytes # 2.7 10^3/uL (0.8-4.8); Lymphocytes % 29.3 %; Mean Corpuscular HGB Conc 31.9 g/dL (30.0-36.0); Mean Corpuscular Hemoglobin 27.3 pg (28.0-34.0); Mean Corpuscular Volume 85.4 fl (81-99); Mean Platelet Volume 12.8 fL (7.4-10.4); Monocytes # 0.9 10^3/uL (0.2-0.9); Monocytes % 10.1 %; Neutrophils # 5.15 10^3/uL (1.8-7.7); Neutrophils % 55.8 %; Nucleated Red Blood Cells % 0 %; Platelet Count 250 10^3/cmm (130-400); Red Blood Count 4.99 10^6/uL (4.1-5.3); Red Cell Distribution Width 12.9 % (12.1-15.1); White Blood Count 9.2 10^3/uL (4.0-10.0)
[2022-02-12 01:50] LABS: Bilirubin Urine Neg (Negative); Blood Urine Neg (Negative); Glucose Urine UA Norm (Normal); Ketones Urine 1+ (Negative); Leukocyte Esterase Urine Negative (Negative); Nitrate Urine Negative (Negative); Protein Urine Neg (Negative); Sulfosalicylic Acid Urine Negative (Negative); Urine Appearance Clear (CLEAR); Urine Color Yellow (Yellow); Urobilinogen Urine Norm (Negative); pH Urine 8 (5-7)
[2022-02-12 01:58] LABS: Troponin(5th) Baseline 11 ng/L (0-10)
[2022-02-12 02:02] LABS: Alanine Aminotransferase 17 U/L (0-33); Albumin Level 4.5 g/dL (3.5-5.2); Alkaline Phosphatase 83 IU/L (35-105); Anion Gap 18.4 (5-19); Aspartate Amino Transferase 21 U/L (0-32); Blood Urea Nitrogen 19 mg/dL (8-23); Calcium 9.7 mg/dL (8.5-10.5); Carbon Dioxide 22 mmol/L (22-29); Chloride 103 mmol/L (98-107); Globulin 2.8 g/dL (1.3-4.6); Glomerular Filtration Rate 98.8 mL/min (90-130); Glucose 133 mg/dL (65-115); Lipase 15 U/L (13-60); NT Pro B Type Natriuretic Pept 517 pg/mL (0-125); Osmolality Calculated 294 mOsm/kg (285-295); Potassium 3.4 mmol/L (3.5-5.1); Sodium 140 mmol/L (136-145); Total Bilirubin 0.5 mg/dL (0.15-1.2); Total Protein 7.3 g/dL (6.6-8.7)
--- NOTE | 2022-02-12 02:11 | ECG_ITS ---
[facility] Test Date: 2022-02-12 Pat Name: Miryam Medina Department: Room: Gender: Female Driller And Reamer: : 1950 Requested By: Cresencio Kapadia Order Number: [id number] Aniceto MD: Lucila Gunter M.D. Measurements Intervals Cable Rate: 65 P: 30 HI: 145 QRS: 21 QRSD: 92 T: -81 QT: 403 QTc: 421 Interpretive Statements SINUS RHYTHM ST DEVIATION AND MODERATE T-WAVE ABNORMALITY, CONSIDER ANTEROLATERAL ISCHEMIA [-0.1+ mV T-WAVE IN V3-V6] ST DEVIATION AND MODERATE T-WAVE ABNORMALITY, CONSIDER INFERIOR ISCHEMIA [-0.1+ mV T-WAVE IN II/aVF] Compared to ECG 01/21/2022 18:48:33 Possible ischemia now present Sinus bradycardia no longer present T-wave abnormality still present Electronically Signed On 02-13-2022 7:46:01 CDT by Lucila Gunter M.D. [id number]
[2022-02-12 03:07] LABS: Troponin 5 2HR 11.57 ng/L (0-10)
[2022-02-12 03:09] LABS: Troponin 5 2HR Delta 0.57 ABS# (0-10)
--- NOTE | 2022-02-12 09:27 | DCPLANNER ---
Addendum entered by Cheryl Webb 03/07/22 20:32: Patient had a follow up appointment scheduled with [facility] - patient did attend appointment. Addendum entered by Cheryl Webb 02/13/22 15:29: Patient has a follow up appointment scheduled for Wednesday, February 16, 2022 at 9:30 with WATER PUMP INSTALLER, Valery Corona at [facility]. retail general manager called patient and gave her the appointment information. Original Note: retail general manager had message to schedule a follow up appointment for patient with heart care. retail general manager sent patients information to the front staff at [facility]. Patients information will be printed and reviewed. Clinic will notify disease case manager rn of the scheduled appointment. retail general manager will call patient with appointment information.
== END 2022-02-12 03:30 | disposition home or self-care (01) ==
PROVIDERS: Emergency Provider Physician Assistant; PCP Family Medicine
DX: R00.2 Palpitations (principal); I10 Essential (primary) hypertension; Z79.82 Long term (current) use of aspirin; Z87.891 Personal history of nicotine dependence
CPT/HCPCS: 71045; 80053; 81003; 83690; 83880; 84484; 85025; 87040; 93005; 99283

== ENCOUNTER → 2022-02-16 09:20 | Outpatient (BNVA) | payer MEDICARE, SELFPAY | PROVIDERS: PCP Family Medicine; Visit Provider Nurse Practitioner Family | DX: Z09 Encounter for follow-up examination after completed treatment for conditions other than malignant neoplasm (principal); I48.0 Paroxysmal atrial fibrillation; Z79.01 Long term (current) use of anticoagulants; I25.10 Atherosclerotic heart disease of native coronary artery without angina pectoris; Z87.891 Personal history of nicotine dependence; Z79.82 Long term (current) use of aspirin; Z95.5 Presence of coronary angioplasty implant and graft; R06.02 Shortness of breath; I10 Essential (primary) hypertension | CPT/HCPCS: 99214 ==

== ENCOUNTER 2022-03-08 06:57 | Outpatient (CLI) | payer MEDICARE, SELFPAY ==
[2022-03-08 07:05] VITALS: BMI 29.2
--- NOTE | 2022-03-08 07:14 | ECG_ITS ---
[facility] Test Date: 2022-03-08 Pat Name: Miryam Medina Department: Room: Gender: Female Therapeutic Recreation Specialist: Cassie Johnson : 1950 Requested By: Valery Corona Order Number: [id number] Aniceto MD: Britt Vang M.D. Interpretive Statements NAME OF STUDY: LEXISCAN SESTAMIBI STRESS TEST INDICATION: Fatigue,; Shortness of Breath, PROCEDURE: At the baseline, the EKG revealed normal sinus rhythm with a diffuse nonspecific ST-T changes. The baseline blood pressure was 119/69 mm Hg with a heart rate of 60 beats/min. Lexiscan was infused over a period of 20 seconds. A total of 0.4 milligrams of Lexiscan was infused. The stress phase was continued for a total of 5 minutes. Heart rate at the end of the stress phase was 85 with a blood pressure 114/63. The EKG at the peak infusion revealed more pronounced ST-T changes in the inferior and anterolateral leads. Sestamibi was injected 20 seconds after the Lexiscan infusion. Blood pressure at the end of the recovery phase was 127/67 with a heart rate of 82 per minute. CONCLUSION: 1. Nonspecific EKG changes with the LexiScan infusion 2. No LexiScan induced chest pain or cardiac arrhythmia 3. Normal blood pressure and heart rate response 4. Sestamibi/sestamibi perfusion scan pending; see separate report. Electronically Signed On 03-08-2022 14:18:01 CDT by Britt Vang M.D. [id number]
--- NOTE | 2022-03-08 07:15 | NMCV_ITS ---
NM bunny perf SPECT r/s* [id number] Miryam Medina Age: 71 Gender: F : 1950 Exam Date: 03/08/2022 08:15 Ordering Phys: Valery Corona Technologist: SHANTEL Solis Exam Location: [facility] Indications: SHORTNESS OF BREATH STRESS TEST Please see separate stress test report in [facility] for full findings IMAGE PROTOCOL Rest/Stress 1 Lexiscan Day Radiopharmaceutical Dose (mCi) Administration Site Administered by Rest: Tc-99m 10.7 IV SHANTEL Monge Sestamibi Stress:Tc-99m 32.7 IV SHANTEL Monge Sestamibi Rest: 08-Mar-2022 60 Discovery 630 Stress: 08-Mar-2022 30 Discovery 630 0.4mg Lexiscan. Images obtained in supine and prone position. SPECT RESULTS Technical Quality: Excellent Raw Data Analysis: Breast attenuation Image Corrections: No attenuation or motion correction applied Summed Stress Score: 2 Summed Rest Score: 8 Summed Difference Score: 0 PERFUSION FINDINGS Small to moderate area of slightly decreased tracer uptake was noted in the inferior and inferolateral regions, however in the supine imaging. With the prone imaging, there is fairly uniform myocardial tracer uptake. No significant reversibility was noted in these regions. FUNCTIONAL RESULTS (calculated via Gated SPECT) Stress Image LV EF (%): 92 Stress EDV (mL):59 TID: 0.68 Stress ESV (mL):5 FUNCTIONAL FINDINGS: Segmental wall motion analysis revealing no gross wall motion abnormalities. IMPRESSIONS 1. Unremarkable myocardial perfusion imaging 2. Normal LV ejection fraction 92%. 3. LV wall motion analysis revealing no gross wall motion abnormalities. 4. Normal LV volume. Low probability for coronary ischemia, based on the above findings Dr Britt Vang MD [facility] (Electronically Signed) Final Date: 08 Mar 2022 12:52 S
[2022-03-08] MEDS: regadenoson 0.4 Mg/5 ml Syringe IVP (08:54)
[2022-03-08 09:03] VITALS: BP 127/67; PULSE 81
== END 2022-03-08 06:58 | disposition home or self-care (01) ==
LOC: CDL 06:59
PROVIDERS: PCP Family Medicine; Visit Provider Nurse Practitioner Family
DX: R06.02 Shortness of breath (principal); R53.83 Other fatigue
CPT/HCPCS: 78452; 93017; A9500; J2785

== ENCOUNTER → 2022-03-15 10:47 | Outpatient (BNVA) | payer MEDICARE, SELFPAY | PROVIDERS: PCP Family Medicine; Visit Provider Internal Medicine Cardiovascular Disease | DX: I48.0 Paroxysmal atrial fibrillation (principal); I25.10 Atherosclerotic heart disease of native coronary artery without angina pectoris; I10 Essential (primary) hypertension; Z87.891 Personal history of nicotine dependence | CPT/HCPCS: 99214 ==

== ENCOUNTER 2022-04-17 14:45 | Outpatient (CLI) | payer MEDICARE, SELFPAY ==
--- NOTE | 2022-04-17 14:53 | MM_ITS ---
WS: [id number] VIEWS: MLO and CC views both breasts. 3D digital tomosynthesis is also included in this exam. Comparison made with prior exam of 08/03/2011, 02/23/2015, 12/25/2016, 05/22/2018, 11/27/2019, 03/17/2021.. Findings: There was no sign of mass, architectural distortion or suspicious calcification in either breast. Fa tty MM/[place] [id number] Impression: BI-RADS: 1-Negative FOLLOW-UP: 1 Year Follow-up This mammogram was also analyzed by the Computer Aided Detection System R2 Imag e Varnisher Apprentice.
== END 2022-04-17 14:46 | disposition home or self-care (01) ==
PROVIDERS: PCP Family Medicine; Visit Provider Family Medicine
DX: Z12.31 Encounter for screening mammogram for malignant neoplasm of breast (principal)
CPT/HCPCS: 77063; 77067

== ENCOUNTER → 2022-04-23 11:06 | Outpatient (BNVA) | payer MEDICARE, SELFPAY | PROVIDERS: PCP Family Medicine; Visit Provider Family Medicine | DX: E03.9 Hypothyroidism, unspecified (principal); I10 Essential (primary) hypertension; E78.5 Hyperlipidemia, unspecified; I48.0 Paroxysmal atrial fibrillation; E87.6 Hypokalemia | CPT/HCPCS: 80053; 80061; 83880; 85025 ==

== ENCOUNTER → 2022-06-12 12:56 | Outpatient (BNVA) | payer MEDICARE, SELFPAY | PROVIDERS: PCP Family Medicine; Visit Provider Obstetrics & Gynecology | DX: R10.2 Pelvic and perineal pain (principal); N83.201 Unspecified ovarian cyst, right side; Z90.710 Acquired absence of both cervix and uterus | CPT/HCPCS: 76830 ==

== ENCOUNTER 2022-06-15 13:09 | Outpatient (CLI) | payer MEDICARE, SELFPAY ==
[2022-06-15 13:32] LABS: Basophils # 0.1 10^3/uL (0.0-0.1); Basophils % 0.8 %; Eosinophils # 0.6 10^3/uL (0.0-0.8); Eosinophils % 7.6 %; Hematocrit 39.9 % (37.0-47.0); Hemoglobin 12.2 g/dL (11.5-15.3); Lymphocytes # 2.4 10^3/uL (0.8-4.8); Lymphocytes % 29.4 %; Mean Corpuscular HGB Conc 30.6 g/dL (30.0-36.0); Mean Corpuscular Hemoglobin 26.9 pg (28.0-34.0); Mean Corpuscular Volume 87.9 fl (81-99); Mean Platelet Volume 12.3 fL (7.4-10.4); Monocytes # 0.8 10^3/uL (0.2-0.9); Monocytes % 9.6 %; Neutrophils # 4.19 10^3/uL (1.8-7.7); Neutrophils % 52.3 %; Nucleated Red Blood Cells % 0 %; Platelet Count 239 10^3/cmm (130-400); Red Blood Count 4.54 10^6/uL (4.1-5.3); Red Cell Distribution Width 13.5 % (12.1-15.1)
[2022-06-15 14:06] LABS: INR 1.23 (0.83-1.21); Prothrombin Time (Patient) 15.8 Seconds (12.0-15.1)
[2022-06-20 13:38] LABS: HE4 ROMA Monitoring 43 pmol/L; ROMA CA125 13 U/mL (<35); ROMA Postmenopausal 0.91 (<2.77); ROMA Premenopausal 0.52 (<1.31)
== END 2022-06-15 13:10 | disposition home or self-care (01) ==
PROVIDERS: Absent Provider Obstetrics & Gynecology; PCP Family Medicine; Visit Provider Nurse Practitioner Family
DX: I25.10 Atherosclerotic heart disease of native coronary artery without angina pectoris (principal); I48.0 Paroxysmal atrial fibrillation; R31.9 Hematuria, unspecified; Z79.01 Long term (current) use of anticoagulants
CPT/HCPCS: 36415; 81500; 85025; 85610

== ENCOUNTER → 2022-06-18 14:14 | Outpatient (BNVA) | payer MEDICARE, SELFPAY | PROVIDERS: PCP Family Medicine; Visit Provider Nurse Practitioner Family | DX: I48.0 Paroxysmal atrial fibrillation (principal); Z79.01 Long term (current) use of anticoagulants | CPT/HCPCS: 99213 ==

== ENCOUNTER → 2022-07-12 10:27 | Outpatient (BNVA) | payer MEDICARE, SELFPAY | PROVIDERS: PCP Family Medicine; Visit Provider Internal Medicine Cardiovascular Disease | DX: I25.10 Atherosclerotic heart disease of native coronary artery without angina pectoris (principal); I48.0 Paroxysmal atrial fibrillation; I10 Essential (primary) hypertension; E78.5 Hyperlipidemia, unspecified; E66.09 Other obesity due to excess calories; Z68.31 Body mass index [BMI] 31.0-31.9, adult; Z87.891 Personal history of nicotine dependence | CPT/HCPCS: 99214 ==

== ENCOUNTER → 2023-01-10 13:26 | Outpatient (BNVA) | payer MEDICARE, SELFPAY | PROVIDERS: PCP Family Medicine; Visit Provider Nurse Practitioner Family | DX: I25.10 Atherosclerotic heart disease of native coronary artery without angina pectoris (principal); I48.0 Paroxysmal atrial fibrillation; I10 Essential (primary) hypertension; Z87.891 Personal history of nicotine dependence | CPT/HCPCS: 99214 ==

== ENCOUNTER → 2023-04-08 11:58 | Outpatient (BNVA) | payer MEDICARE, SELFPAY | PROVIDERS: PCP Family Medicine; Visit Provider Family Medicine | DX: Z00.00 Encounter for general adult medical examination without abnormal findings (principal); E78.5 Hyperlipidemia, unspecified; E03.9 Hypothyroidism, unspecified; I10 Essential (primary) hypertension; I48.0 Paroxysmal atrial fibrillation; Z79.01 Long term (current) use of anticoagulants | CPT/HCPCS: 80053; 80061; 85025 ==

== ENCOUNTER 2023-06-05 14:31 | Outpatient (CLI) | payer MEDICARE, SELFPAY ==
--- NOTE | 2023-06-05 15:04 | MM_ITS ---
WS: [id number] BILATERAL 3D TOMOSYNTHESIS DIGITAL SCREENING MAMMOGRAM WITH CAD CLINICAL INFORMATION: SCREE HISTORY: Screening mammogram. No current complaints. COMPARISON: 2021 TECHNIQUE: Bilateral CC and MLO views. FINDINGS: Fatty-replaced breasts bilaterally. No suspicious focal mass, asymmetry, calcifications, or it network architect ural distortion. No evidence of malignancy. IMPRESSION: MM/[place] [id number] BI-RADS: 1-Negative FOLLOW UP: 1 Year Follow-up Recommend return to annual screening mammography.
== END 2023-06-05 14:32 | disposition home or self-care (01) ==
LOC: RAD 14:32 → MOBLMAM 14:43 → RAD 14:58
PROVIDERS: PCP Family Medicine; Visit Provider Family Medicine
DX: Z12.31 Encounter for screening mammogram for malignant neoplasm of breast (principal)
CPT/HCPCS: 77063; 77067

== ENCOUNTER → 2023-08-06 14:02 | Outpatient (BNVA) | payer MEDICARE, SELFPAY | PROVIDERS: PCP Family Medicine; Visit Provider Internal Medicine Cardiovascular Disease | DX: I48.0 Paroxysmal atrial fibrillation (principal); I25.10 Atherosclerotic heart disease of native coronary artery without angina pectoris; I10 Essential (primary) hypertension; Z87.891 Personal history of nicotine dependence; Z79.01 Long term (current) use of anticoagulants | CPT/HCPCS: 99214 ==

== ENCOUNTER → 2024-02-18 12:36 | Outpatient (BNVA) | payer MEDICARE, SELFPAY | PROVIDERS: PCP Family Medicine; Visit Provider Internal Medicine Cardiovascular Disease | DX: I48.0 Paroxysmal atrial fibrillation (principal); I10 Essential (primary) hypertension; E78.5 Hyperlipidemia, unspecified; I25.10 Atherosclerotic heart disease of native coronary artery without angina pectoris; Z79.01 Long term (current) use of anticoagulants; Z87.891 Personal history of nicotine dependence | CPT/HCPCS: 99213 ==

== ENCOUNTER → 2024-04-13 13:41 | Outpatient (BNVA) | payer MEDICARE, SELFPAY | PROVIDERS: PCP Family Medicine; Visit Provider Family Medicine | DX: I10 Essential (primary) hypertension (principal); E78.5 Hyperlipidemia, unspecified; E03.9 Hypothyroidism, unspecified; Z00.00 Encounter for general adult medical examination without abnormal findings; I48.0 Paroxysmal atrial fibrillation; Z79.01 Long term (current) use of anticoagulants; T63.461A Toxic effect of venom of wasps, accidental (unintentional), initial encounter | CPT/HCPCS: 80053; 80061; 84443; 85025 ==

== ENCOUNTER 2024-07-06 14:00 | Outpatient (CLI) | payer MEDICARE, SELFPAY ==
--- NOTE | 2024-07-06 14:13 | MM_ITS ---
WS: [id number] BILATERAL SCREENING DIGITAL TOMOSYNTHESIS MAMMOGRAM WITH CAD HISTORY: SCREENING COMPARISON: 06/05/2023, 04/17/2022, Bilateral CC and MLO views with tomosynthesis and synthetic mammography submitted. Computer aided det ection analyzed. Breast composition: The breasts are almost entirely fatty. No suspicious masses, microcalcifications or architectural distortion. MM/[place] [id number] IMPRESSION: BI-RADS: 1 - Negative. FOLLOW UP: 1 Year Follow-up
== END 2024-07-06 14:06 | disposition home or self-care (01) ==
PROVIDERS: PCP Family Medicine; Visit Provider Family Medicine
DX: Z12.31 Encounter for screening mammogram for malignant neoplasm of breast (principal)
CPT/HCPCS: 77063; 77067

== ENCOUNTER → 2024-08-18 09:41 | Outpatient (BNVA) | payer MEDICARE, SELFPAY | PROVIDERS: PCP Family Medicine; Visit Provider Nurse Practitioner Family | DX: I10 Essential (primary) hypertension (principal); I48.0 Paroxysmal atrial fibrillation; I25.10 Atherosclerotic heart disease of native coronary artery without angina pectoris; Z87.891 Personal history of nicotine dependence; Z79.01 Long term (current) use of anticoagulants | CPT/HCPCS: 99214 ==

== ENCOUNTER → 2024-09-02 10:30 | Outpatient (BNVA) | payer MEDICARE, SELFPAY | PROVIDERS: PCP Family Medicine; Visit Provider Family Medicine | DX: R31.9 Hematuria, unspecified (principal) | CPT/HCPCS: 81000 ==

== ENCOUNTER 2025-01-25 12:24 | Outpatient (CLI) | payer MEDICARE, SELFPAY ==
--- NOTE | 2025-01-25 12:29 | XR_ITS ---
WS: [id number] XR hip RT 2-3V wo/w pel* [id number] REASON FOR EXAM: intermittant right groin pain w walking FINDINGS: No fracture or focal bone lesion. Mild narrowing of the joint space with mild subchondral sclerosis and cystic change of the acetabulum. Minimal osteophytosis of the femoral head. No soft tissue abnormality. XR/XR hip RT 2-3V wo/w pel* [id number] IMPRESSION: Mild osteoarthritis of the right hip.
== END 2025-01-25 12:25 | disposition home or self-care (01) ==
PROVIDERS: PCP Family Medicine; Visit Provider Family Medicine
DX: M16.11 Unilateral primary osteoarthritis, right hip (principal); R79.0 Abnormal level of blood mineral; E03.9 Hypothyroidism, unspecified; E78.5 Hyperlipidemia, unspecified; I10 Essential (primary) hypertension
CPT/HCPCS: 73502; 80053; 80061; 83735; 84443; 85025

== ENCOUNTER → 2025-03-04 12:40 | Outpatient (BNVA) | payer MEDICARE, SELFPAY | PROVIDERS: PCP Family Medicine; Visit Provider Internal Medicine Cardiovascular Disease | DX: I25.10 Atherosclerotic heart disease of native coronary artery without angina pectoris (principal); E78.5 Hyperlipidemia, unspecified; I10 Essential (primary) hypertension; I48.0 Paroxysmal atrial fibrillation; Z79.01 Long term (current) use of anticoagulants; I25.2 Old myocardial infarction | CPT/HCPCS: 99214 ==

== ENCOUNTER 2025-03-09 09:43 | Outpatient (CLI) | payer MEDICARE, SELFPAY ==
--- NOTE | 2025-03-09 10:00 | USR_ITS ---
PROCEDURE INFORMATION: Exam: US Bilateral Noninvasive Physiologic Study of the Lower Extremity Arteries, Limited Exam date and time: 03/09/2025 9:47 AM Age: 74 years old Clinical indication: Pain; Leg, lower; Right; Additional info: Intermittentright groin cramping w ambulation TECHNIQUE: Imaging protocol: Bilateral Limited bilateral noninvasive physiologic studies of lower extremity arteries. Waveforms were obtained and evaluated. Images were documented and archived. Exam is limited. COMPARISON: US transvaginal [id number] 06/12/2022 12:58 PM FINDINGS: Right Ankle-Brachial Index: Brachial: 145 mm Hg Ankle (PT): 144 mm Hg, index 0.94 (borderline) Ankle (DP): 150 mm Hg, index 0.98 (borderline) Digit: 143 mm Hg, index 0.93 (borderline) Left Ankle-Brachial Index: Brachial: 153 mm Hg Ankle (CIRCULAR KNIFE MACHINE CUTTER): 147 mm Hg, index 0.96 (borderline) Ankle (DP): 149 mm Hg, index 0.97 (borderline) Digit: 126 mm Hg, index 0.82 (mild arterial insufficiency) US/CV ankle brachial index [id number] IMPRESSION: 1. Mild arterial insufficiency in the left digital artery. 2. Borderline ABIs in the other arteries.
== END 2025-03-09 09:44 | disposition home or self-care (01) ==
PROVIDERS: PCP Family Medicine; Visit Provider Family Medicine
DX: I73.9 Peripheral vascular disease, unspecified (principal); I77.1 Stricture of artery
CPT/HCPCS: 93922

== ENCOUNTER 2025-08-11 14:05 | Outpatient (CLI) | payer MEDICARE, SELFPAY ==
--- NOTE | 2025-08-11 14:10 | MM_ITS ---
WS: [id number] BILATERAL 3D TOMOSYNTHESIS DIGITAL SCREENING MAMMOGRAPHY WITH CAD CLINICAL INFORMATION: SCREENING HISTORY: Screening mammogram. No current complaints. COMPARISON: 2023 TECHNIQUE: Bilateral CC and MLO views. FINDINGS: Scattered fibroglandular densities bilaterally. No suspicious focal mass, asymmetry, calcifications, or architectural distortion. No evidence of malignancy. MM/MM scr BI tomosynthesis [id number] IMPRESSION: DENSITY: There are scattered areas of fibroglandular density. BI-RADS: 1 - Negative. FOLLOW UP: 1 Year Follow-up Recommend return to annual screening mammography.
== END 2025-08-11 14:06 | disposition home or self-care (01) ==
LOC: RAD 14:07
PROVIDERS: PCP Family Medicine; Visit Provider Family Medicine
DX: Z12.31 Encounter for screening mammogram for malignant neoplasm of breast (principal); R92.323 Mammographic fibroglandular density, bilateral breasts
CPT/HCPCS: 77063; 77067